=== PATIENT | female | born 1945 | race Two or more races ===

== ENCOUNTER 2019-04-03 17:14 | Emergency (ER) | payer SELFPAY ==
[~2019-04-03] VITALS: Ht 165.1 cm; Wt 63.5 kg
[2019-04-03 17:25] VITALS: BP 165/92
--- NOTE | 2019-04-03 17:25 | NUR ---
ED Nurse Note: pt was brought in by ambulance from home c/o laceration on the posterior head, pt denies loc, pt complains of 8/10 pain. pt noted to have bleeding on the head and noticed to have laceration. pt also complains of 8/10 pain on the lower back, pt stated that she slipped on the bathroom while she is taking a bath, landed on her back and hit her head on the floor. pt denies dizziness. seen byermd. pt medicated and tolerated well.
[2019-04-03] MEDS ORDERED: Tetanus/Diptheria/Pertussis IM ONE (17:30)
[2019-04-03] MEDS ORDERED: NKM (17:48)
[2019-04-03] MEDS ORDERED: Tylenol #3 tab (300mg/30mg) ORAL ONE (18:00)
--- NOTE | 2019-04-03 18:00 | NUR ---
ED Nurse Note: pt went to ct with tech
--- NOTE | 2019-04-03 18:09 | NUR ---
ED Nurse Note: pt went to ct with tech
--- NOTE | 2019-04-03 18:35 | NUR ---
HAND-OFF: Report given to Alexa CONSTANTINO.
--- NOTE | 2019-04-03 19:10 | NUR ---
HAND-OFF: Report given to Sirena Brown RN.
[2019-04-03] MEDS ORDERED: BACITRACIN15 GM TOPIC (19:11)
[2019-04-03] MEDS ORDERED: ACETAMINOPHEN-1 EAC1 ORAL (19:11)
[2019-04-03] MEDS ORDERED: Bacitracin Oint UD TOPIC ONE (19:15)
[2019-04-03 19:40] VITALS: BP 144/78
--- NOTE | 2019-04-03 19:40 | NUR ---
ER Nurse Note: All orders completed per ERMD orders. Pt seen, treated, medically cleared for discharge by ERMD. Discharge instructions given with repeat verbazliaion by pt. Instructed pt to follow up with primary care provider within one week. Pt a&ox4, VSS, no signs of distress. ID band removed. Wound care provided; site clean and gauzed. Provided pt with extra supplies. Pt left with all belongings with steady gait via own transportation with family.
--- NOTE | 2019-04-03 23:33 | Emergency Room Report ---
History of Present Illness General Chief Complaint: Multiple Trauma/Fall Source: Patient Present Illness HPI 73-year-old female presents to ED for evaluation. Right in by EMS from home. Patient tripped and fell in the shower today hitting her head. Denies LOC. Bleeding from the posterior scalp. Complaining of headache and neck pain and back pain. Tetanus unknown. Pain is sharp, 8 out of 10, nonradiating. Denies any other injuries. No other aggravating relieving factors. Denies any other associated symptoms Allergies: Coded Allergies: No Known Allergies (Unverified , 04/03/19) Patient History Past Medical History: none Past Surgical History: none Pertinent Family History: none Social History: Denies: smoking, alcohol use, drug use Now: No Immunizations: UTD Reviewed Nursing Documentation: PMH: Agreed; PSxH: Agreed Nursing Documentation-PMH Past Medical History: No History, Except For Hx Cardiac Problems: No - RA Review of Systems All Other Systems: negative except mentioned in HPI Physical Exam Vital Signs Date Time Temp Pulse Resp B/P (MAP) Pulse Ox O2 Delivery O2 Flow Rate FiO2 04/03/19 17:14 98.1 105 16 100 Room Air 04/03/19 17:25 165/92 Sp02 EP Interpretation: reviewed, normal General Appearance: no apparent distress, alert, GCS 15, non-toxic Head: normocephalic, other - posterior scalp abrasion Eyes: bilateral eye normal inspection, bilateral eye PERRL ENT: hearing grossly normal, normal pharynx, no angioedema, normal voice Neck: full range of motion, supple/symm/no masses, tender midline Respiratory: chest non-tender, lungs clear, normal breath sounds, speaking full sentences Cardiovascular #1: regular rate, rhythm, no edema Cardiovascular #2: 2+ carotid (R), 2+ carotid (L), 2+ radial (R), 2+ radial (L) , 2+ dorsalis pedis (R), 2+ dorsalis pedis (L) Gastrointestinal: normal bowel sounds, non tender, soft, non-distended, no guarding, no rebound Rectal: deferred Genitourinary: normal inspection, no CVA tenderness, vertebral tenderness Musculoskeletal: back normal, gait/station normal, normal range of motion, non- tender Neurologic: alert, oriented x3, responsive, motor strength/tone normal, sensory intact, speech normal Psychiatric: judgement/insight normal, memory normal, mood/affect normal, no suicidal/homicidal ideation Reflexes: 3+ bicep (R), 3+ bicep (L), 3+ tricep (R), 3+ tricep (L), 3+ knee (R) , 3+ knee (L) Skin: normal color, no rash, warm/dry, well hydrated Lymphatic: no adenopathy Medical Decision Making Diagnostic Impression: Primary Impression: Scalp abrasion Qualified Codes: S00.01XA - Abrasion of scalp, initial encounter Additional Impression: Head injury Qualified Codes: S09.90XA - Unspecified injury of head, initial encounter ER Course Hospital Course 73 yo F presents to ED Differential diagnoses include: skull fx, intracranial injury, concussion Clinical course Patient placed on stretcher. After initial history and physical I ordered pain meds, TDAP CT head/cspine/Lspine CT head C-spine and L-spine negative for acute process Wound irrigated on posterior scalp. An abrasion does not require suturing. Bacitracin and a pressure dressing applied. Discussed findings with patient. Reassurance given. Safe for discharge and close outpatient follow-up. We'll provide referrals Diagnosis - head injury, scalp abrasion Stable and discharged to home with Rx tylenol #3, bacitracin. Followup with PMD. Return to ED if symptoms recur or worsen CT/MRI/US Diagnostic Results CT/MRI/US Diagnostic Results #1: Imaging Test Ordered: CT head Impression no acute process CT/MRI/US Diagnostic Results #2: Imaging Test Ordered: CT C spine Impression no acute process CT/MRI/US Diagnostic Results #3: Imaging Test Ordered: CT L spine Impression no acute process Last Vital Signs Date Time Temp Pulse Resp B/P (MAP) Pulse Ox O2 Delivery O2 Flow Rate FiO2 04/03/19 18:37 98.0 04/03/19 17:25 105 16 165/92 100 Room Air Status: improved Disposition: HOME, SELF-CARE Condition: Stable Scripts Bacitracin (Bacitracin) 28.4 Gm Oint...g. 1 APPLIC TOPIC THREE TIMES A DAY, #28.4 GM Prov: Perez Rodriguez MD 04/03/19 Acetaminophen With Codeine (T#3) (TYLENOL #3 TAB*) Y Tab 1 TAB ORAL Q8H PRN for For Pain, #12 TAB Prov: Perez Rodriguez MD 04/03/19 Referrals: [facility]. [facility] Patient Instructions: Facial or Scalp Contusion, [id number] Perez Rodriguez MD April 03, 2019 23:33
--- NOTE | 2019-04-04 09:18 | Diagnostic Imaging Report ---
Indication: Back pain Technique: Continuous helical transaxial imaging of the lumbar spine was obtained. No IV contrast was administered. Coronal 2-D reformats were also obtained. Study obtained in a Siemens sensation [address] Total Dose length Product (DLP): 426.[address] Dose Index Volume (CTDIvol): 14.03 mGy Comparison: None Findings: Bones are osteopenic. There is a no acute fracture identified. Narrowing of the intervertebral discs noted throughout the lumbar spine and visualized lower thoracic spine. Scattered hypertrophic endplate osteophytes and hypertrophied facets noted at multiple levels. There is a mild anterolisthesis at L4-5. Aorta is moderately calcified. There is suggestion of foraminal stenosis at L4-5 and L5-S1 and spinal stenosis at L4-5. There is a small left adrenal mass demonstrated measuring about 1.5 x 1 cm. Consider MRI for further evaluation IMPRESSION: No acute injury appreciated. Degenerative spondylosis as described above. Left adrenal mass likely adenoma. Consider evaluation with MRI. [facility] has communicated the preliminary results to the Emergency Department. Their findings are largely concordant with this report. The CT scanner at [facility] is accredited by the [employer] and the scans are performed using dose optimization techniques as appropriate to a performed exam including Automatic Exposure control.
--- NOTE | 2019-04-04 09:31 | Diagnostic Imaging Report ---
Indication: Neck pain and trauma Technique: Continuous helical imaging of the cervical spine was obtained transaxially from the skull base to the upper thoracic spine. 2-D coronal and sagittal reformatted images were obtained. Automatic Exposure Control was utilized. Total Dose length Product (DLP): [address] Dose Index Volume (CTDIvol): 70.38,12 mGy Comparison: None Findings: There is no acute fracture or malalignment identified. There is no soft tissue swelling identified. Mild uncovertebral arthritis is demonstrated at multiple levels. Some of the intervertebral discs show mild narrowing. There is minimal anterolisthesis at C3-4 and C4-5. Impression: No acute injury Mild spondylosis [facility] has communicated the preliminary results to the Emergency Department. Their findings are largely concordant with this report. The CT scanner at [facility] is accredited by the [employer] and the scans are performed using dose optimization techniques as appropriate to a performed exam including Automatic Exposure control.
--- NOTE | 2019-04-04 10:29 | Diagnostic Imaging Report ---
Indication: Head trauma and headache Technique: Contiguous 5 mm thick transaxial imaging of the head obtained in a Siemens Sensation [address] scanner. Soft tissue and bone windows generated. Automatic Exposure Control was utilized. Total Dose length Product (DLP): [address] Dose Index Volume (CTDIvol): 70.38,12 mGy Comparison: none Findings: There is mild prominence of the ventricles, basal cisterns, and cerebral sulci consistent with atrophy. Mild, nonspecific, white matter hypoattenuation is noted throughout the brain consistent with chronic small vessel disease. There is no midline shift, edema, acute hemorrhage, mass effect, or abnormal extra-axial fluid collections. Calvarium appears intact. There is a moderate focus of laceration and contusion with soft tissue swelling of the scalp posteriorly. Impression: No acute intracranial bleed, mass effect or edema. Mild atrophy of the brain. Nonspecific white matter hypoattenuation probably due to chronic small vessel disease. Posterior Laceration/contusion The CT scanner at [facility] is accredited by the [employer] and the scans are performed using dose optimization techniques as appropriate to a performed exam including Automatic Exposure control.
== END 2019-04-03 19:40 | disposition home or self-care (01) ==
LOC: EDBD 17:14 → EMR 17:51
DX: S00.01XA Abrasion of scalp, initial encounter (principal); S09.90XA Unspecified injury of head, initial encounter; W18.2XXA Fall in (into) shower or empty bathtub, initial encounter; Y92.9 Unspecified place or not applicable; R51 Headache; M54.9 Dorsalgia, unspecified; M54.2 Cervicalgia; M06.9 Rheumatoid arthritis, unspecified; Z23 Encounter for immunization
CPT/HCPCS: 70450; 72125; 72131; 90471; 90715; 99284